=== PATIENT | male | born 1975 | race African-American/Black ===

== ENCOUNTER 2017-08-01 11:38 | Emergency (ER) | payer BC ==
--- NOTE | 2017-08-01 11:41 | PDOC ---
History of Present Illness - General Chief Complaint: Back Pain Stated Complaint: BACK PAIN Time Seen by Provider: 08/01/17 11:41 History Source: Patient Exam Limitations: No Limitations - History of Present Illness Initial Comments: 08/01/17 11:41 Mr Samuels is a 41 yo M who presents to the ER with a complaint of back pain He states he has had lumbar pain for the past 4 weeks No trauma No heavy lifting No radiation to the legs No numbness or tingling Pt has noted more recently that his back pain is radiating up his spine No bowel or bladder incontinence No saddle anesthesia Pt states this morning he had trouble getting out of the couch due to back pain Has not taken any pain medications for this Of note Pt also states that he was contacted by the department of Health stating that she may have been exposed to Syphillis He is not sure when this could have happened Pt states he had HIV testing as of 2 months ago PMH: HTN PSH: Hernia Repair Meds: Metoprolol 50mg ALL: Tylenol #3 Social: Denies FH: Non contributory GENERAL/CONSTITUTIONAL: No: fever, chills, weakness, loss of appetite. HEAD, EYES, EARS, NOSE AND THROAT: No: change in vision, ear pain, discharge, sore throat, throat swelling. CARDIOVASCULAR: No: chest pain, lightheadedness, palpitations, syncope RESPIRATORY: No: cough, shortness of breath, wheezing, hemoptysis, stridor. GASTROINTESTINAL: No: nausea, vomiting, diarrhea, abdominal cramping, rectal bleeding, constipation. GENITOURINARY: No: dysuria, hematuria, frequency, urgency, flank pain. MUSCULOSKELETAL: Yes: back pain, neck pain No: joint pain, muscle swelling or pain SKIN AND BREASTS: No: lesions, pallor, rash or easy bruising. NEUROLOGIC: No: headache, vertigo, paresthesias, weakness ENDOCRINE: No: unexplained weight gain or loss HEMATOLOGIC/LYMPHATIC: No: anemia, easy bleeding, swelling nodes. GENERAL: The patient is in no acute distress, pt appears anxious. HEAD: Normal with no signs of trauma. EYES: PERRLA, EOMI, sclera anicteric, conjunctiva clear. ENT: Ears normal, nares patent, oropharynx clear without exudates. Moist mucous membranes. NECK: Normal range of motion, supple without lymphadenopathy, JVD, or masses. LUNGS: Breath sounds equal, clear to auscultation bilaterally. No wheezes, and no crackles. HEART:Regular rate and rhythm, normal S1 and S2 without murmur, rub or gallop. ABDOMEN: Soft, nontender, normoactive bowel sounds. No guarding, no rebound. No masses palpable. EXTREMITIES: Normal range of motion NEUROLOGICAL: Cranial nerves II through XII grossly intact. Normal speech. No focal neurological deficits. MUSCULOSKELETAL: Midline tenderness to palpation thoracic, lumbar spine, no limitation in flexion or extension nml motor function - flexion, extension at hip, knee, ankle intact Abduction/adduction at hip in tact Sensation in tact SKIN: Warm, Dry, normal turgor, no rashes or lesions noted. 08/01/17 12:06 08/01/17 15:22 Past History - Past Medical History Allergies/Adverse Reactions: Allergies Allergy/AdvReac Type Severity Reaction Status Date / Time acetaminophen Allergy Verified 08/01/17 11:39 [From Tylenol-Codeine #3] codeine Allergy Verified 08/01/17 11:39 [From Tylenol-Codeine #3] Home Medications: Ambulatory Orders Lidocaine 5% Patch [Lidoderm Patch -] 1 patch TP DAILY PRN #30 patch 08/01/17 Methocarbamol [Robaxin -] 500 mg PO TID PRN #30 tablet 08/01/17 Metoprolol Succinate 50 mg PO DAILY 08/01/17 Naproxen Sodium 220 mg PO BID PRN #30 tablet 08/01/17 HTN: Yes - Suicide/Smoking/Psychosocial Hx Smoking History: Current every day smoker Have you smoked in the past 12 months: Yes Number of Cigarettes Smoked Daily: 2 'Breaking Loose' booklet given: 05/31/13 Hx Alcohol Use: Yes Substance Use Type: Alcohol, Marijuana Medical Decision Making - Medical Decision Making 08/01/17 15:15 41 yo M presenting with lower back pain and concern about STD exposure GC/Chlamydia sent Ceftriaxone and azithromycin ordered Assessment reveals no chancroid or palmar rash (exam performed with Tim Mccain RN) RPR sent 08/01/17 15:16 Pt reports back pain localized to the lower back Will order Naproxen/Robaxin/Lidoderm Clinical Impression: back pain, initial presentation Exposure to std, initial presentation 08/01/17 15:48 Please note, pt states he feels dizzy EKG: SR, rate of 58 bpm, axis nml, intervals nml, no st elevations or depressions Pt given xanax for what seemed to be anxiety This improved *DC/Admit/Observation/Transfer Diagnosis at time of Disposition: Anxiety Back pain Qualifiers: Back pain location: low back pain Chronicity: unspecified Back pain laterality : midline Sciatica presence: without sciatica Qualified Code(s): M54.5 - Low back pain - Discharge Dispostion Disposition: HOME Condition at time of disposition: Stable Decision to Admit order: No - Prescriptions Prescriptions: Lidocaine 5% Patch [Lidoderm Patch -] 1 patch TP DAILY PRN #30 patch PRN Reason: Pain Methocarbamol [Robaxin -] 500 mg PO TID PRN #30 tablet PRN Reason: Lower Back Pain Naproxen Sodium 220 mg PO BID PRN #30 tablet PRN Reason: Pain - Referrals - Patient Instructions Printed Discharge Instructions: DI for Low Back Pain, DI for Thoracic Back Pain Additional Instructions: Thank you for coming in to the ER today Please be sure to call the ER in 3 days for your results - Post Discharge Activity
[2017-08-01 11:50] VITALS: BP 126/86; PULSE 64; TEMP 98.6; BMI 26.4
[2017-08-01] MEDS ORDERED: ALPRAZolam 1 MG TABLET PO PRN (11:56)
[2017-08-01] MEDS ORDERED: ALPRAZolam 0.25 MG TABLET ONE (12:07)
[2017-08-01] MEDS ORDERED: AZITHROMYCIN 500 MG TABLET PO ONE (15:15)
[2017-08-01] MEDS ORDERED: AZITHROMYCIN 1 GM PACKET ONE (15:24)
[2017-08-01] MEDS ORDERED: cefTRIAXone SODIUM 1 GM VIAL ONE (15:24)
--- NOTE | 2017-08-03 22:09 | EKG ---
Test Reason : Blood Pressure : / mmHG Vent. Rate : 058 BPM Atrial Rate : 058 BPM P-R Int : 158 ms QRS Dur : 088 ms QT Int : 416 ms P-R-T Axes : 043 -08 042 degrees QTc Int : 408 ms SINUS BRADYCARDIA NONSPECIFIC T WAVE ABNORMALITY ABNORMAL ECG NO PREVIOUS ECGS AVAILABLE Confirmed by FRANSISCA RIOS, FLORINDA ([id number]) on 08/03/2017 10:09:32 PM Referred By: DR CORTEZ Confirmed By:FLORINDA GONGORA MD
== END 2017-08-01 15:46 | disposition home or self-care (01) ==
LOC: FER 11:38
DX: F41.9 Anxiety disorder, unspecified (principal); M54.5 Low back pain; Z11.3 Encounter for screening for infections with a predominantly sexual mode of transmission; F17.210 Nicotine dependence, cigarettes, uncomplicated; I10 Essential (primary) hypertension
CPT/HCPCS: 36415; 72070-TC-FY; 72100-TC-FY; 86593; 87389; 87491; 87591; 93005; 99282-25

== ENCOUNTER 2020-05-02 09:35 | Day surgery (SDC) | payer BC, OTHER ==
[2020-04-25 16:00] VITALS: BMI 27.9
[2020-05-02] MEDS ORDERED: LIDOCAINE HCL/PF 2% SDV 5ML VIAL ONE (10:08)
[2020-05-02] MEDS ORDERED: PROPOFOL 20 ML ONE ×3 (10:08)
[2020-05-02 10:09] VITALS: TEMP 97.8
[2020-05-02 12:02] VITALS: PULSE 57
[2020-05-02 12:04] VITALS: BP 102/55
== END 2020-05-02 11:55 | disposition home or self-care (01) ==
LOC: FASU-ENDO 09:35
PROVIDERS: ATTEND Internal Medicine Gastroenterology
PROC: 0DJD8ZZ Inspection of Lower Intestinal Tract, Via Natural or Artificial Opening Endoscopic (ICD-10-PCS; principal; 2020-05-02 11:03)
DX: Z12.11 Encounter for screening for malignant neoplasm of colon (principal); K64.1 Second degree hemorrhoids; K64.8 Other hemorrhoids

== ENCOUNTER 2022-02-17 11:41 | Emergency (ER) | payer OTHER ==
[2022-02-17 12:06] VITALS: BP 138/79; PULSE 81; RESP 18; TEMP 98.8; BMI 29.1
[2022-02-17 14:03] LABS: BASO % 0.3 % (0-2.0); EOS % 1.7 % (0-4.5); HEMATOCRIT 36.8 % (35.4-49); HEMOGLOBIN 11.7 GM/dL (11.7-16.9); LYMPH % 25.3 % (8-40); MCH 24.7 pg (25.7-33.7); MCHC 31.8 g/dl (32.0-35.9); MEAN CELL VOLUME 77.7 fl (80-96); MEAN PLT VOLUME 8.9 fl (7.5-11.1); MONO % 8.3 % (3.8-10.2); NEUT % 64.4 % (42.8-82.8); PLATELET COUNT 220 10^3/uL (134-434); RBC 4.74 M/mm3 (4.00-5.60); RDW 15.1 % (11.9-15.9); WHITE BLOOD COUNT 6.5 K/mm3 (4.0-10.0)
[2022-02-17 14:08] LABS: INR 1.19 (0.83-1.09); PROTHROMBIN TIME (PATIENT) 13.7 SEC (9.7-13.0)
[2022-02-17 14:10] LABS: ACTIVATED PTT 32.5 SECONDS (25.2-36.5)
[2022-02-17 14:51] LABS: CALCIUM 9.3 mg/dL (8.5-10.1)
[2022-02-17 14:52] LABS: ALBUMIN 3.3 g/dl (3.4-5.0); BLOOD UREA NITROGEN 13.9 mg/dL (7-18); MAGNESIUM 1.8 mg/dL (1.8-2.4)
[2022-02-17 14:55] LABS: CREATININE 1.2 mg/dL (0.55-1.3)
[2022-02-17 14:56] LABS: BILIRUBIN,TOTAL 0.4 mg/dL (0.2-1)
[2022-02-17 14:57] LABS: TOT PROT 7.8 g/dl (6.4-8.2)
[2022-02-17 15:00] LABS: N-TERMINAL BNP 31.1 pg/ml (5-125)
== END 2022-02-17 14:14 | disposition home or self-care (01) ==
LOC: JER 11:41
DX: R55 Syncope and collapse (principal)
CPT/HCPCS: 0241U-QW; 36415; 80053; 83735; 83880; 84484; 85025; 85610; 85730; 93005; 93010; 94060-TC; 94726-TC; 94729-TC; 94760; 99284-25